=== PATIENT | male | born 1995 | race Caucasian/White ===

== ENCOUNTER 2025-04-17 10:39 | Emergency (ER) | payer MEDICAID ==
[~2025-04-17] VITALS: Ht 180.3 cm; Wt 107.0 kg
[2025-04-17 10:45] VITALS: O2SAT 100
[2025-04-17 11:41] LABS: BASOPHILS % 0.3 % (0.0-2.0); EOSINOPHILS % 0.0 % (0.0-5.0); HEMATOCRIT. 43.2 % (42.0-52.0); HEMOGLOBIN. 14.7 g/dL (14.0-18.0); LYMPHOCYTES % 9.9 % (20.0-50.0); MEAN PLATELET VOLUME 8.7 fl (7.4-10.4); MONOCYTES % 6.2 % (2.0-8.0); NEUTROPHILS % 83.6 % (40.0-76.0); PLATELET 257 x1000/uL (130-400); RED BLOOD CELL COUNT 4.68 mill/uL (4.7-6.1); RED CELL DISTRIBUTION WIDTH 13.1 % (11.6-14.6)
[2025-04-17] MEDS: DIPHENHYDRAMINE 50MG/ML VIAL IV ONE (11:59)
[2025-04-17] MEDS: METOCLOPRAMIDE HCL 10MG/2ML VIAL IV ONE (11:59)
[2025-04-17] MEDS: SODIUM CHLORIDE 0.9% 1,000 ML IV ONE (12:00)
[2025-04-17 12:01] LABS: CREATININE 0.9 mg/dL (0.6-1.3)
[2025-04-17 12:02] LABS: UREA NITROGEN BLOOD 9 mg/dL (9-23)
[2025-04-17 12:03] LABS: ASPARTATE AMINOTRANSFERASE 21 IU/L (<34)
[2025-04-17 12:04] LABS: BILIRUBIN TOTAL 0.7 mg/dL (0.1-1.0); PROTEIN TOTAL 7.7 g/dL (6.0-8.3)
[2025-04-17] MEDS: ACETAMINOPHEN 1000MG/100ML 100 ML IV ONE (12:40)
[2025-04-17] MEDS ORDERED: ASPI1TAB8 PO (14:15)
[2025-04-17] MEDS ORDERED: NAPR220C61 MT (14:15)
[2025-04-17 14:44] VITALS: BP 132/78; PULSE 83; RESP 16; TEMP 37.1; O2SAT 100
== END 2025-04-17 15:14 | disposition home or self-care (01) ==
LOC: ER 10:52
DX: R51.9 Headache, unspecified (principal)
CPT/HCPCS: 80053; 85025; 36415; 70450; 96361; 96365; 96375; 99285; J1200; J2765; J7030; Z7610; J0131